=== PATIENT | male | born 1955 | race Caucasian/White ===

== ENCOUNTER 2017-05-10 15:11 | Emergency (ER) | payer OTHER ==
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
[2017-05-10] MEDS ORDERED: KETOROLAC TROMETHAMINE INJ/PF 30 MG/1 ML SDV IV ONE (17:38)
[2017-05-10 18:29] VITALS: BP 161/84
== END 2017-05-10 18:30 | disposition short-term general hospital (02) ==
LOC: ER 15:11
DX: S12.200A Unspecified displaced fracture of third cervical vertebra, initial encounter for closed fracture (principal); X58.XXXA Exposure to other specified factors, initial encounter; Y93.18 Activity, surfing, windsurfing and boogie boarding; Y92.832 Beach as the place of occurrence of the external cause; M54.2 Cervicalgia
CPT/HCPCS: 99285; 96374; 70450; 72125; L0172; J1885